=== PATIENT | female | born 1990 | race Hispanic/Latino ===

== ENCOUNTER 2023-11-19 15:18 | Outpatient (CLI) | payer OTHER | END 2023-11-19 15:19 | disposition home or self-care (01) | LOC: ULT 15:18 | PROVIDERS: ATTEND Advanced Practice Midwife | DX: O20.0 Threatened abortion (principal); N83.8 Other noninflammatory disorders of ovary, fallopian tube and broad ligament | CPT/HCPCS: 76817 ==